=== PATIENT | female | born 1985 | race American Indian/Alaskan Native ===

== ENCOUNTER 2018-09-08 20:55 | Emergency (ER) | payer OTHER ==
[2018-09-08 21:25] VITALS: BP 131/105
--- NOTE | 2018-09-08 21:25 | Emergency Department Report ---
Chief Complaint: Chest Pain Stated Complaint: CHEST PAIN DIZZINESS Time Seen by Provider: 09/08/18 21:21 - HPI History of Present Illness: pt presents with substernal CP that began tonight pt states she gets CP about twice a week x 1 year mild SOB, mild dizziness pt states she has seen her PCP about this and was "referred to a neurologist" pt has a hx HIV MSE screening note: Focused history and physical exam performed. Due to findings the following was ordered: CXR, EKG, urine preg, UA ED Disposition for MSE Condition: Stable
[2018-09-08 22:16] LABS: Bacteria,Urine 1+ /HPF (Negative); Bilirubin,Urine NEG (Negative); Blood,Urine NEG (Negative); Color,Urine Yellow (Yellow); Protein,Urine <15 mg/dL mg/dL (Negative); Urobilinogen,Urine < 2.0 mg/dL (<2.0)
[2018-09-08 22:17] LABS: HCG Qualitative,Urine Negative (Negative)
--- NOTE | 2018-09-08 23:48 | XRay Report ---
PROCEDURE: XR CHEST ROUTINE 2V TECHNIQUE: PA and lateral chest radiographs were obtained. HISTORY: CP COMPARISONS: None. FINDINGS: Heart: Normal. Mediastinum/Vessels: Normal. Lungs/Pleural space: Normal. Bony thorax: No acute osseous abnormality. IMPRESSION: Normal examination. This document is electronically signed by Ryley Bee MD., September 08 2018 11:47:05 PM ET
[2018-09-09] MEDS ORDERED: MACROBID PO ONE (00:21)
[2018-09-09] MEDS ORDERED: IBUPROFEN PO ONE (00:21)
--- NOTE | 2018-09-09 01:07 | Emergency Department Report ---
ED General Adult HPI - General Chief complaint: Chest Pain Stated complaint: CHEST PAIN DIZZINESS Time Seen by Provider: 09/08/18 21:21 Source: patient Mode of arrival: Ambulatory Limitations: No Limitations - History of Present Illness Initial comments: pt presents with substernal CP that began tonight pt states she gets CP about twice a week x 1 year mild SOB, mild dizziness pt states she has seen her PCP about this and was "referred to a neurologist" pt has a hx HIV Onset/Timin -: year(s) Location: chest Radiation: non-radiation Severity scale (0 -10): 3 Quality: aching Consistency: intermittent Improves with: none Worsens with: none Treatments Prior to Arrival: none - Related Data Previous Rx's Medication Instructions Recorded Last Taken Type Ibuprofen 800 mg PO TID PRN #30 tablet 09/09/18 Unknown Rx Nitrofurantoin Dodge/M-Cryst 100 mg PO Q12HR 7 Days #14 capsule 09/09/18 Unknown Rx [Macrobid CAP] Allergies Allergy/AdvReac Type Severity Reaction Status Date / Time No Known Allergies Allergy Unverified 09/08/18 21:00 ED Review of Systems ROS: Stated complaint: CHEST PAIN DIZZINESS Other details as noted in HPI Constitutional: denies: chills, fever Eyes: denies: eye pain, eye discharge, vision change ENT: denies: ear pain, throat pain Respiratory: denies: cough, shortness of breath, wheezing Cardiovascular: denies: chest pain, palpitations Endocrine: no symptoms reported Gastrointestinal: denies: abdominal pain, nausea, diarrhea Genitourinary: denies: urgency, dysuria, discharge Musculoskeletal: denies: back pain, joint swelling, arthralgia Skin: denies: rash, lesions Neurological: denies: headache, weakness, paresthesias Psychiatric: denies: anxiety, depression Hematological/Lymphatic: denies: easy bleeding, easy bruising ED Past Medical Hx - Past Medical History Previous Medical History?: No - Surgical History Past Surgical History?: No - Social History Smoking Status: Never Smoker Substance Use Type: None - Medications Home Medications: Home Medications Medication Instructions Recorded Confirmed Last Taken Type Ibuprofen 800 mg PO TID PRN #30 tablet 09/09/18 Unknown Rx Nitrofurantoin Dodge/M-Cryst 100 mg PO Q12HR 7 Days #14 capsule 09/09/18 Unknown Rx [Macrobid CAP] ED Physical Exam - General Limitations: No Limitations General appearance: alert, in no apparent distress - Head Head exam: Present: atraumatic, normocephalic - Eye Eye exam: Present: normal appearance, PERRL, EOMI Pupils: Present: normal accommodation - ENT ENT exam: Present: mucous membranes moist - Neck Neck exam: Present: normal inspection - Respiratory Respiratory exam: Present: normal lung sounds bilaterally. Absent: respiratory distress - Cardiovascular Cardiovascular Exam: Present: regular rate, normal rhythm. Absent: systolic murmur, diastolic murmur, rubs, gallop - GI/Abdominal GI/Abdominal exam: Present: soft, normal bowel sounds. Absent: distended, tenderness, guarding, rebound, bruit, hernia - Extremities Exam Extremities exam: Present: normal inspection - Back Exam Back exam: Present: normal inspection, full ROM. Absent: tenderness, CVA tenderness (R), CVA tenderness (L) - Neurological Exam Neurological exam: Present: alert, oriented X3, CN II-XII intact, normal gait - Psychiatric Psychiatric exam: Present: normal affect, normal mood - Skin Skin exam: Present: warm, dry, intact, normal color. Absent: rash ED Course Vital Signs 09/08/18 21:22 Temperature 98.9 F Pulse Rate 66 Respiratory 16 Rate Blood Pressure 131/105 O2 Sat by Pulse 100 Oximetry ED Medical Decision Making - Lab Data Labs 09/08/18 21:42 Urine Color Yellow Urine Turbidity Clear Urine pH 7.0 Ur Specific Evans 1.010 Urine Protein <15 mg/dl Urine Glucose (UA) Neg Urine Ketones Neg Urine Blood Neg Urine Nitrite Neg Urine Bilirubin Neg Urine Urobilinogen < 2.0 Ur Leukocyte Esterase Mod Urine WBC (Auto) 2.0 Urine RBC (Auto) 2.0 U Epithel Cells (Auto) 6.0 Urine Bacteria (Auto) 1+ Urine HCG, Qual Negative - Radiology Data Radiology results: report reviewed, image reviewed cc: ASHELY CHURCHILL Fluoro Time In Minutes: PROCEDURE: XR CHEST ROUTINE 2V TECHNIQUE: PA and lateral chest radiographs were obtained. HISTORY: CP COMPARISONS: None. FINDINGS: Heart: Normal. Mediastinum/Vessels: Normal. Lungs/Pleural space: Normal. Bony thorax: No acute osseous abnormality. IMPRESSION: Normal examination. This document is electronically signed by Yara Gerber MD., September 08 2018 11:47:05 PM ET Transcribed By: CO Dictated By: AYRA GERBER MD Electronically Authenticated By: YARA GERBER MD Signed Date/Time: 09/08/182347 DD/ 16 TD/TT: 09/08/182316 - Medical Decision Making CXR is normal no infiltrate no opacities, ekg: nsr no st elevation no ectopy interp by ed attending, pt is low risk for neg heart score, ua: mos leuk, wbc bacteria, this is likely anxiety, plan tx for uti, follow up with pcp and idp, nsaids for chest pain , pt and family members verbalized agreement of same. pt dc 'd to home in stable condtion Critical care attestation.: If time is entered above; I have spent that time in minutes in the direct care of this critically ill patient, excluding procedure time. ED Disposition Clinical Impression: UTI (urinary tract infection) Qualifiers: Urinary tract infection type: acute cystitis Hematuria presence: without hematuria Qualified Code(s): N30.00 - Acute cystitis without hematuria Chest pain Qualifiers: Chest pain type: unspecified Qualified Code(s): R07.9 - Chest pain, unspecified Disposition: DC-01 TO HOME OR SELFCARE Is pt being admited?: No Does the pt Need Aspirin: No Condition: Stable Instructions: Chest Pain (ED), Costochondritis (ED), Urinary Tract Infection in Women (ED) Prescriptions: Ibuprofen 800 mg PO TID PRN #30 tablet PRN Reason: pain Nitrofurantoin Dodge/M-Cryst [Macrobid CAP] 100 mg PO Q12HR 7 Days #14 capsule Referrals: [facility] [Outside] - 3-5 Days Forms: Work/School Release Form(ED) Time of Disposition:
== END 2018-09-09 01:30 | disposition home or self-care (01) ==
LOC: ED 20:55
DX: N39.0 Urinary tract infection, site not specified (principal); R07.89 Other chest pain; Z21 Asymptomatic human immunodeficiency virus [HIV] infection status
CPT/HCPCS: 71046; 81001; 81025; 93005; 93010; 99284